=== PATIENT | female | born 1995 | race Caucasian/White ===

== ENCOUNTER 2018-10-24 05:15 | Emergency (ER) | payer OTHER ==
[~2018-10-24] VITALS: Ht 170.2 cm; Wt 114.3 kg
[2018-10-24 05:27] VITALS: BP 125/83; Ht 170.2 cm; Wt 114.3 kg
[2018-10-24 06:40] LABS: UA SPECIFIC GRAVITY 1.025 (1.005-1.035); microscopic required? YES; urine erythrocyte 3+ (NEGATIVE)
== END 2018-10-24 06:36 | disposition home or self-care (01) ==
LOC: ED 05:15
PROVIDERS: Specialist
DX: O23.41 Unspecified infection of urinary tract in pregnancy, first trimester (principal); Z3A.08 8 weeks gestation of pregnancy